=== PATIENT | female | born 1955 | race Hispanic/Latino ===

== ENCOUNTER → 2023-12-25 | Outpatient (CLI) | payer OTHER | END | disposition home or self-care (01) | LOC: SHCH 10:12 | PROVIDERS: ATTEND Internal Medicine Cardiovascular Disease | DX: I08.8 Other rheumatic multiple valve diseases (principal); R06.02 Shortness of breath | CPT/HCPCS: 93306 ==

== ENCOUNTER → 2024-01-15 | Outpatient (CLI) | payer OTHER ==
[2024-01-15 14:24] LABS: CREATININE 0.7 mg/dL (0.5-1.0)
== END | disposition home or self-care (01) ==
LOC: LAB 13:51
PROVIDERS: ATTEND Internal Medicine Gastroenterology
DX: R10.11 Right upper quadrant pain (principal)
CPT/HCPCS: 36415; 82565; 84520

== ENCOUNTER → 2024-05-24 | Outpatient (CLI) | payer OTHER ==
--- NOTE | 2024-05-24 12:49 | HMCIMG ---
MR SPINAL CANAL, LUMBAR WO CON REASON: RADICULOPATHY LUMBAR COMPARISON: None TECHNIQUE: Routine lumbar imaging protocol was performed. FINDINGS: There are normal appearing vertebral bodies. There are no focal osseous lesions. There are no compression fractures. Vertebral body alignment appears normal. Interspace heights are preserved. Axial images show ligamentum flavum and facet hypertrophic changes most pronounced at L4-5. There is also diffuse annular bulging at L4-5. There is severe spinal stenosis, AP diameter in the midline is between 3 and 4 mm, narrowing is more pronounced in the lateral recesses. Foramina appear patent. Remaining interspaces appear preserved. There are no other focal areas of spinal stenosis. Neural foramina appear patent. Surrounding soft tissues appear unremarkable. IMPRESSION: 1. Severe spinal stenosis at L4-5 on a degenerative basis, AP diameter the midline is between 3 and 4 mm.
== END | disposition home or self-care (01) ==
LOC: RAH 11:05
PROVIDERS: ATTEND Family Medicine
DX: M47.26 Other spondylosis with radiculopathy, lumbar region (principal); M48.061 Spinal stenosis, lumbar region without neurogenic claudication; M51.16 Intervertebral disc disorders with radiculopathy, lumbar region
CPT/HCPCS: 72148